=== PATIENT | male | born 1965 | race Caucasian/White ===

== ENCOUNTER 2017-08-20 05:32 | Inpatient (IN) | payer OTHER ==
[2017-08-20] MEDS ORDERED: ASPIRIN 81 MG CHEW TAB PO ONE (05:42)
[2017-08-20] MEDS ORDERED: 0.9 % SODIUM CHLORIDE 1,000 ML IV ONE ×2 (05:47→07:54)
[2017-08-20] MEDS ORDERED: DILTIAZEM HCL 25 MG/ 5ML VIAL ONE (05:48)
[2017-08-20] MEDS ORDERED: DILTIAZEM HCL 25 MG/ 5ML VIAL IVP ONE ×3 (05:50→08:05)
[2017-08-20 05:59] LABS: BASOPHILS % 1.7 (0.0-1.5); EOSINOPHILS % 3.6 % (0.0-6.8); MEAN CORPUSCULAR HEMOGLOBIN 31.9 pg (28.0-34.0); MEAN CORPUSCULAR VOLUME 90.3 fl (80.0-100.0); MONOCYTES % 6.2 % (0.0-11.0); NEUTROPHILS # 4.5 # k/uL (1.4-7.7)
[2017-08-20] MEDS ORDERED: 0.9 % SODIUM CHLORIDE 1,000 ML IV SCH ×2 (06:00→08:21)
[2017-08-20] MEDS ORDERED: DILTIAZEM HCL 125 MG in 0.9 % SODIUM CHLORIDE 100 ML IV STA ×3 (06:08→14:18)
--- NOTE | 2017-08-20 06:13 | ED Physician Documentation ---
Chest Pain - HISTORIAN Historian: patient, spouse - HPI Stated Complaint: PALPITATIONS Chief Complaint: Chest Pain Additional Information: awoke 0530 w/palpations apparent new onset at fib w/ rate 150 plus. pt ess asymptomatic cb=[id number] slight diaphoretic Onset: hours (0530) Timing: sudden onset Duration: constant Last known Well Date: 08/20/17 Last Known Well Time: 05:30 Context: sleep Severity: mild, moderate Quality: pressure, tightness Chest Pain Radiation: no radiation Chest Pain Signs/Symptoms: diaphoresis. denies: nausea, vomiting Further Comments: yes (mother has at fib) - ROS CONST: none MS/LYMPH: none EYES/ENT: none SKIN/ENDO: none NEURO/PSYCH: depression (slight takes citalopram) - PAST HX [facility] risk factors: hypertension (lisinopril 10 mg daily) Neuro deficit: none GI disease: none Lung disease: none Surgeries/Procedures: none Allergies/Adverse Reactions: Allergies Allergy/AdvReac Type Severity Reaction Status Date / Time Sulfa (Sulfonamide Allergy Intermediate Verified 08/20/17 05:47 Antibiotics) Home Medications: Ambulatory Orders Medication Instructions Recorded Ibuprofen [Advil] 200 mg PO Q6 PRN 08/20/17 - SOCIAL HX Smoking History: non-smoker Alcohol Use: occasionally Drug Use: none - FAMILY HX Family HX: other (mom w/atfib) - VITAL SIGNS Vital Signs: Vital Signs Temp Pulse Resp BP Pulse Ox 153 H 18 135/77 97 08/20/17 05:32 08/20/17 05:32 08/20/17 05:32 08/20/17 05:32 - REVIEWED ASSESSMENTS Nursing Assessment Reviewed: Yes Vitals Reviewed: Yes ED Results Lab/Radiology - Lab Results Lab Results: Lab Results 08/20/17 05:43 WBC 7.70 K/ul K/ul (4.00-12.00) RBC 4.96 M/ul M/ul (3.90-5.20) Hgb 15.8 g/dL g/dL (12.0-18.0) Hct 44.8 % % (37.0-53.0) MCV 90.3 fl fl (80.0-100.0) MCH 31.9 pg pg (28.0-34.0) MCHC 35.3 g/dL g/dL (30.0-36.0) RDW 12.5 % % (11.3-14.3) Plt Count 221 K/mm3 K/mm3 (130-400) Neut % (Auto) 58.2 % % (39.0-79.0) Lymph % (Auto) 28.4 % % (16.0-50.0) [place] % (Auto) 6.2 % % (0.0-11.0) Eos % (Auto) 3.6 % % (0.0-6.8) Baso % (Auto) 1.7 H (0.0-1.5) Neut # (Auto) 4.5 # k/uL # k/uL (1.4-7.7) Lymph # (Auto) 2.2 # k/uL # k/uL (0.6-4.0) [place] # (Auto) 0.5 # k/uL # k/uL (0.0-0.9) Eos # (Auto) 0.3 # k/uL # k/uL (0.0-0.6) Baso # (Auto) 0.1 # k/uL # k/uL (0.0-0.5) Reactive Lymphs % 2.0 % % (0.0-5.0) Reactive Lymphs # 0.2 # k/uL # k/uL (0.0-0.8) - Orders Orders: ED Orders Category Date Time Status Continuous EKG monitoring Q30M Care 08/20/17 05:43 Active Continuous Pulse Oximetry Q30M Care 08/20/17 05:[address] IV Lock 1T Care 08/20/17 05:49 Ordered CHEST 1 VIEW [RAD] Stat Exams 08/20/17 05:43 Ordered CBC/PLATELET/DIFF Routine Lab 08/20/17 05:43 Ordered CMP Routine Lab 08/20/17 05:43 Ordered CREATINE KINASE Routine Lab 08/20/17 05:43 Ordered TROPONIN I (cTnI) Stat Lab 08/20/17 05:43 Ordered 0.9 % Sodium Chloride [Normal Saline] 1,000 ml Med 08/20/17 05:47 Discontinued IV .STK-MED Aspirin Med 08/20/17 05:42 Discontinued 324 mg PO NOW ONE DILTIAZEM HCL 125 MG in 0.9 % SODIUM CHLORIDE @ 15 MLS/ Med 08/20/17 06:08 Ordered HR(125ml) Diltiazem HCl [Cardizem] 125 mg 0.9 % Sodium Chloride [Sodium Chloride] 100 ml IV 1T Diltiazem HCl [Cardizem] Med 08/20/17 05:50 Once 10 mg IVP STAT ONE Diltiazem HCl [Cardizem] Med 08/20/17 06:06 Once 10 mg IVP STAT ONE Diltiazem HCl [Cardizem] Med 08/20/17 05:48 Discontinued 25 mg .ROUTE .STK-MED ONE NORMAL SALINE @ 100 MLS/HR(1000ml) Med 08/20/17 06:00 Ordered 0.9 % Sodium Chloride [Normal Saline] 1,000 ml IV Q10H Oxygen Daily Oxygen 08/20/17 05:45 Ordered EKG WITH COMPARISON Stat Ther 08/20/17 05:43 Ordered Chest Pain Physical Exam - EXAM General Appearance: mild distress. No: anxious, lethargic, hyperventilating EENT: eye inspection normal Neck: nml inspection, no carotid bruit. No: lymphadenopathy Respiratory: no resp. distress, chest non-tender, nml breath sounds CVS: irregularly irreg. rhythm, tachycardia (150-160) Abdomen: soft, non-tender Skin: diaphoresis Extremities: non-tender, normal range of motion, no evidence of injury, no edema Neuro: oriented X3, motor nml, sensation nml, mood/affect nml (no appaarent anxiety or ddistress -denies and demeanor isk of [facility] unconcern smiles laughs aon jokes) Discharge Clincal Impression: uncontrolled atrial fibrillation Referrals: Randal Sinclair MD [Primary Care Provider] - 2 Days Comments: disc w/pt and DR SINCLAIR will adm observation cont cardizem drip Condition: Good Disposition: ADMITTED INPATIENT Decision to Admit: [id number] Decision Time: 06:58
[2017-08-20 06:38] LABS: eGFR (African) > 60; eGFR (Non-African) > 60
--- NOTE | 2017-08-20 06:53 | Diagnostic Imaging Report ---
SERA ELDER [facility] [address] [facility] [address] [address] Report Submission Date: Aug 20, 2017 6:07:21 AM CDT Patient Study Name: RACHELLE PUENTES Date: Aug 20, 2017 5:45:17 AM CDT Modality Type: CR Gender: M Description: CHEST : 67 Institution: [facility] Physician: SERA ELDER Portable chest History: Chest pressure Findings: Cardiomegaly and pulmonary vascular congestion are present. There is no infiltrate or pleural effusion. Osseous structures are unremarkable. Impression: Cardiomegaly and pulmonary vascular congestion, suspicious for mild congestive heart failure. Electronically signed on Aug 20, 2017 6:07:21 AM CDT by: Mike PAIZ
[2017-08-20] MEDS ORDERED: IBUPROFEN 200 MG TABLET PO PRN (08:21)
--- NOTE | 2017-08-20 08:35 | History and Physical Report ---
History of Present Illnes - History of Present Illness Reason for Visit: palpitations History of Present Illness: 52yo white male who awoke feeling fine on the morning of admission. He then developed a irregular heart rate that was poinding and fast. Patient denies any chest pain or pressure. Has not had any previous episodes. Patient denies any SOB, pedal edema, thyroid problems, history of PE or other cardiac issues. He does have a history of HTN. Patient subsquently came to the ED. in the ED, patient was found to have atrial fibrillation with a rapid ventricular response. Patient was given Cardizem 10 mg IV with only a short period of time where his rate came down. Patient was subsequently started on a Cardizem drip and admitted to the hospital for further care and evaluation. - Past Medical History Cardiac: HTN Psych: Depression - Past Surgical History Past Surgical History: None - Past Family History Mother Family History: Hypertension, Other (HTN, Atrial fibrillation) Father Family History: Cancer (prostate) - Past Social History Smoke: No Alcohol: Occassional Drugs: None Lives: With Family Domestic Violence: Negative - Health Maintenance Health Maintenance: Cholesterol, Influenza Vaccine. denies: Colonoscopy Influenza Vaccine: No Pneumonia Vaccine: No Resuscitation Status: Resusciation Status Resuscitation Status Full Code - Unable to Obtain History Unable to Obtain: No Review of Systems - Review of Systems Constitutional: negative: Fever, Chills, Sweats Eyes: negative: pain ENT: negative: Ear Pain, Ear Discharge, Nose Pain, Nose Discharge, Nose Congestion, Mouth Pain, Mouth Swelling, Throat Pain, Throat Swelling Respiratory: negative: Cough, Dry, Shortness of Breath, Hemoptysis, SOB with Excertion, Pleuritic Pain, Sputum, Wheezing Cardiovascular: Palpitations. negative: Chest Pain, Orthopnea, Paroxysmal Noc. Dyspnea, Edema, Light Headedness Gastrointestinal: negative: Nausea, Vomiting, Abdominal Pain, Diarrhea, Constipation, Melena, Hematochezia Genitourinary: negative: Dysuria, Frequency, Incontinence Musculoskeletal: negative: Neck Pain, Back Pain Skin: negative: Rash Neurological: negative: Weakness, Numbness, Incoordination - Medications/Allergies Allergies/Adverse Reactions: Allergies Allergy/AdvReac Type Severity Reaction Status Date / Time Sulfa (Sulfonamide Allergy Intermediate Verified 08/20/17 05:47 Antibiotics) Home Medications: Home Medications Ibuprofen [Advil] 200 mg PO Q6 PRN 08/20/17 Current Inpatient Medications: Current Inpatient Medications Citalopram Hydrobromide (Celexa) 20 mg PO DAILY [facility] Enoxaparin Sodium (Lovenox) 100 mg SQ Q12 [facility] Stop: 08/26/17 21:01 Diltiazem HCl 125 mg/ Sodium (Chloride) 100 mls @ 15 mls/hr IV 1T STA PRN Reason: Protocol Stop: 08/20/17 12:47 Last Admin: 08/20/17 06:20 Dose: 15 ml/hr, 15 mls/hr Diltiazem HCl 125 mg/ Sodium (Chloride) 100 mls @ 15 mls/hr IV 1T STA PRN Reason: Protocol Stop: 08/20/17 15:00 Sodium Chloride (Normal Saline) 1,000 mls @ 100 mls/hr IV Q10H [facility] Ibuprofen (Advil) 200 mg PO Q6 PRN PRN Reason: PAIN Exam - Exam General: Alert, Oriented to Person, Oriented to Place, Oriented to Time, Cooperative HEENT: Atraumatic, Dentition Normal, Hearing Grossly Normal Neck: Normal Range of Motion. No: Lymphadenopathy Carotids: WNL Thyroid: WNL Lungs: Clear to auscultation, Normal air movement, Speaks full Sentences. No: Wheezes, Rales, Rhonchi Cardiovascular: Irregularly Irregular, Atrial Fib Abdomen: Normal bowel sounds, Soft, No tenderness, No hepatospenomegaly, No masses Integumentary: Normal, [place], Warm, Dry Extremities: No clubbing, No cyanosis, No edema, Normal pulses Neurological: Normal gait, Normal speech, Strength Equal Bilat, Normal tone, Sensation intact Psych/Mental Status: Mental status NL, Mood NL, Appropriate Affect, Intact Judgment Assessment/Plan - Assessment/Plan (1) Atrial fibrillation with rapid ventricular response Status: Acute Current Visit: Yes (2) Essential hypertension Status: Chronic Current Visit: Yes (3) Depressive disorder Status: Chronic Current Visit: Yes VTE Assessment - RISK FACTOR SCORE VTE RISK FACTOR SCORES: AGE 40-60 YEARS, ANTICIPATED BED CONFINEMENT OR IMMOBILIZATION > 24 HOURS - RISK VTE MODERATE RISK: SCORE OF 2 (RISK PROXIMAL DVT 2-4%) PROPHYAXIS NEEDED
[2017-08-20] MEDS: CITALOPRAM HYDROBROMIDE 20 MG TABLET PO SCH (08:54)
[2017-08-20] MEDS ORDERED: LISINOPRIL 20 MG TABLET PO SCH (09:00)
[2017-08-20] MEDS: ENOXAPARIN SODIUM 100 MG/ML DISP.SYRIN SQ SCH ×2 (10:53→20:40)
[2017-08-20] MEDS ORDERED: SALINE FLUSH 10 ML DISP.SYRIN IVF ONE ×2 (11:29→17:50)
[2017-08-20 14:17] VITALS: BMI 41.4
[2017-08-20] MEDS: DILTIAZEM HCL 120 MG CAP.ER.24H PO SCH (14:23)
[2017-08-20 20:11] LABS: T3-UPTAKE 32.4 % (25.4-41.2)
[2017-08-21 06:19] VITALS: BP 142/83
[2017-08-21 06:32] LABS: eGFR (African) > 60; eGFR (Non-African) > 60
--- NOTE | 2017-08-21 08:11 | History and Physical Report ---
History of Present Illnes - Past Medical History Cardiac: HTN Psych: Depression - Past Surgical History Past Surgical History: None - Past Social History Smoke: No Alcohol: Occassional Drugs: None Lives: With Family Domestic Violence: Negative - Health Maintenance Health Maintenance: Cholesterol, Influenza Vaccine. denies: Colonoscopy Resuscitation Status: Resusciation Status Resuscitation Status Full Code Review of Systems - Medications/Allergies Allergies/Adverse Reactions: Allergies Allergy/AdvReac Type Severity Reaction Status Date / Time Sulfa (Sulfonamide Allergy Intermediate Verified 08/20/17 05:47 Antibiotics) Home Medications: Home Medications Ibuprofen [Advil] 200 mg PO Q6 PRN 08/20/17 Current Inpatient Medications: Current Inpatient Medications Citalopram Hydrobromide (Celexa) 20 mg PO DAILY [facility] Last Admin: 08/20/17 08:54 Dose: Not Given Diltiazem HCl (Cardizem Cd) 240 mg PO DAILY [facility] Last Admin: 08/20/17 14:23 Dose: 240 mg Enoxaparin Sodium (Lovenox) 100 mg SQ Q12 [facility] Stop: 08/26/17 21:01 Last Admin: 08/20/17 20:40 Dose: Not Given Ibuprofen (Advil) 200 mg PO Q6 PRN PRN Reason: PAIN Exam - Exam Vital Signs: Vital Signs (72 hours) 08/20/17 08/20/17 08/20/17 08:19 08:21 09:21 Temperature 97.6 F Pulse Rate 86 76 Pulse Rate [ 96 H Right Pulse ox] Respiratory 20 Rate Blood Pressure 124/73 [Right Arm] O2 Sat by Pulse 97 96 Oximetry 08/20/17 08/20/17 08/20/17 10:00 10:21 11:21 Temperature 98 F Pulse Rate 77 77 Pulse Rate [ 83 Right Pulse ox] Respiratory 20 Rate Blood Pressure 125/60 [Right Arm] O2 Sat by Pulse 95 Oximetry 08/20/17 08/20/17 08/20/17 12:21 13:21 14:00 Temperature 98.4 F Pulse Rate 89 78 Pulse Rate [ 72 Right Pulse ox] Respiratory 20 Rate Blood Pressure 149/62 [Right Arm] O2 Sat by Pulse 95 97 Oximetry 08/20/17 08/20/17 08/20/17 14:21 15:00 16:00 Temperature Pulse Rate 77 61 58 L Pulse Rate [ Right Pulse ox] Respiratory 20 Rate Blood Pressure [Right Arm] O2 Sat by Pulse 98 Oximetry 08/20/17 08/20/17 08/20/17 17:00 18:00 19:00 Temperature 97.3 F L Pulse Rate 63 63 61 Pulse Rate [ 95 H Right Pulse ox] Respiratory 18 Rate Blood Pressure 112/58 [Right Arm] O2 Sat by Pulse 95 Oximetry 08/20/17 08/20/17 08/20/17 20:00 20:19 21:05 Temperature 98.2 F Pulse Rate 61 66 Pulse Rate [ 62 76 Right Pulse ox] Respiratory 18 16 Rate Blood Pressure 119/58 [Right Arm] O2 Sat by Pulse 96 97 Oximetry 08/20/17 08/20/17 08/21/17 21:07 21:14 00:00 Temperature Pulse Rate 66 64 Pulse Rate [ 76 Right Pulse ox] Respiratory 16 Rate Blood Pressure [Right Arm] O2 Sat by Pulse 97 Oximetry 08/21/17 08/21/17 08/21/17 01:48 02:00 04:00 Temperature 98.1 F Pulse Rate 63 57 L Pulse Rate [ 62 Right Pulse ox] Respiratory Rate Blood Pressure 111/56 [Right Arm] O2 Sat by Pulse 95 94 Oximetry 08/21/17 06:00 Temperature 96.9 F L Pulse Rate 69 Pulse Rate [ 65 Right Pulse ox] Respiratory 16 Rate Blood Pressure 142/83 [Right Arm] O2 Sat by Pulse 98 Oximetry - Laboratory Results Laboratory Results: Laboratory Results 08/20/17 08/21/17 16:00 06:00 Sodium 140 Potassium 3.8 Chloride 105 Carbon Dioxide 28 BUN 15 Creatinine 0.70 Estimated Creat Clear 244 Est GFR ( Amer) > 60 Est GFR (Non-Af Amer) > 60 Glucose 94 Calcium 8.8 Troponin I 0.03 Assessment/Plan - Assessment/Plan (1) Atrial fibrillation with rapid ventricular response Status: Acute Current Visit: Yes (2) Essential hypertension Status: Chronic Current Visit: Yes (3) Depressive disorder Status: Chronic Current Visit: Yes
--- NOTE | 2017-08-21 08:13 | Discharge Summary ---
Discharge Summary - Discharge Sumary History of Present Illness: 52yo white male who awoke feeling fine on the morning of admission. He then developed a irregular heart rate that was poinding and fast. Patient denies any chest pain or pressure. Has not had any previous episodes. Patient denies any SOB, pedal edema, thyroid problems, history of PE or other cardiac issues. He does have a history of HTN. Patient subsquently came to the ED. in the ED, patient was found to have atrial fibrillation with a rapid ventricular response. Patient was given Cardizem 10 mg IV with only a short period of time where his rate came down. Patient was subsequently started on a Cardizem drip and admitted to the hospital for further care and evaluation. Condition at Discharge: Stable Home Medications: Ambulatory Orders Medication Instructions Recorded Ibuprofen [Advil] 200 mg PO Q6 PRN 08/20/17 Aspirin [Adult Low Dose Aspirin EC] 81 mg PO D #100 tablet. 08/21/17 Diltiazem HCl [Cardizem LA] 240 mg PO D #30 tab.er.24h 08/21/17 Consultations this Visit: None Procedures this Visit: None Allergies/Adverse Reactions: Allergies Allergy/AdvReac Type Severity Reaction Status Date / Time Sulfa (Sulfonamide Allergy Intermediate Verified 08/20/17 05:47 Antibiotics) Patient Problems: Current Active Problems Problem Status Onset Atrial fibrillation with rapid ventricular response Acute Depressive disorder Chronic Essential hypertension Chronic Discharge Summary: Patient presented to the ED with new onset of atrial fibrillation with a rapid ventricular response in the 150s. Patient did no have any chest pain or pressure feeling. Patient was treated with Diltiazem 10mg IV without conversion. Rate was still not well controlled and patient was started on a diltiazem drip and admitted tot [facility] for further evaluation and treatment. EKG showed atrial fibrillation with no ischemic changes. chemistries were normal as was CBC. Thyroid studies are pending. Patient did convert back to a NSR and was transitioned over to po Cardizem. He remained in a NSR and was discharged in stable condition. CHADvs score of 1. - Final Diagnosis (1) Atrial fibrillation with rapid ventricular response Problems: Converted, advised to start ASA 81mg daily, stop lisinopril and start Cardizem CD. Patient advised to avoid caffeine, start to exercise and try to lose some weight. (2) Essential hypertension Problems: Will stop Lisinopril and start Cardizem CD 240mg po q day (3) Depressive disorder Problems: Continue with home medication of citalopram
[2017-08-21] MEDS: CITALOPRAM HYDROBROMIDE 20 MG TABLET PO SCH (08:25)
[2017-08-21] MEDS: DILTIAZEM HCL 120 MG CAP.ER.24H PO SCH (08:25)
== END 2017-08-21 09:35 | disposition home or self-care (01) | DRG 310 ==
LOC: ED 05:32 → SOUTH 08:15
PROVIDERS: ADMIT Family Medicine; ATTEND Family Medicine
DX: I48.91 Unspecified atrial fibrillation (principal); I10 Essential (primary) hypertension; F32.9 Major depressive disorder, single episode, unspecified
CPT/HCPCS: 36415; 71010; 80048; 80053; 82550; 82553; 83735; 83880; 84436; 84479; 84484; 85025; 85379; J1650; J3490; J7030; 99223; 99238; 99283; 99284; S1016

== ENCOUNTER 2018-10-12 07:11 | Day surgery (SDC) | payer OTHER ==
[2018-10-12] MEDS ORDERED: LIDOCAINE HCL/PF 2% 100 MG/5 ML VIAL IJ ONE (09:00)
[2018-10-12] MEDS ORDERED: PROPOFOL 200 MG/20 ML VIAL IV ONE (09:00)
[2018-10-12] MEDS ORDERED: LACTATED RINGERS 1,000 ML IV.SOLN IV ONE (09:00)
--- NOTE | 2018-10-14 12:31 | GI Report ---
REFERRING PHYSICIAN: Dr. Randal Sinclair LEGAL SPECIALIST: Jovani Jasmine MD PROCEDURE MEDICATION: Propofol as per anesthesia. INDICATIONS: This 53-year-old man is referred for a screening colonoscopy. This is his first one. He denies any change in bowel habits or bleeding. He denies a family history of colorectal cancer. Patient does have some sleep apnea. He did have atrial fibrillation a year ago converted. He is 6 feet and weighs 305 pounds and carries that centrally. PROCEDURE PERFORMED: Colonoscopy and polypectomy. PROCEDURE: An Olympus video colonoscope was advanced to the rectum. He does have mild diverticular disease throughout the whole colon. He has an atonic redundant colon. It took some maneuvering to finally reach the base of the cecum. The appendiceal orifice and ileocecal valve looked normal. On slow withdrawal, the cecum and ascending colon looked normal. In the proximal transverse colon at 95 cm from the anus, patient had a flat polyp removed with electrocautery about 4 mm in size. The main part of the transverse colon had scattered diverticula. The descending colon shows redundancy and scattered diverticula. No obvious diverticulitis. Retroflexion of the rectum shows hemorrhoids. Patient tolerated the procedure well. FINDINGS: 1. One flat polyp removed in the proximal transverse colon. 2. Moderate diverticular disease of the colon. RECOMMENDATIONS: 1. Being on a fiber supplement daily like Benefiber or Citrucel or FiberCon. 2. Increase vegetable fiber in the diet. 3. Would decrease carbohydrates. They are highly glycemic. 4. Encourage a 25 to 30 pound weight loss. 5. Pending the pathology of the polyp, would need his colon re-looked at again in 5 years. cc: Dr. Randal PAIZ
== END 2018-10-12 07:12 ==
LOC: OPSURG 07:11
PROVIDERS: ATTEND Internal Medicine Gastroenterology
DX: Z12.11 Encounter for screening for malignant neoplasm of colon (principal); K63.5 Polyp of colon
CPT/HCPCS: 45385; J2001; J2704; J7120; S1016